=== PATIENT | female | born 1990 | race Caucasian/White ===

== ENCOUNTER 2020-08-29 16:20 | Emergency (ER) | payer BC, SELFPAY ==
[2020-08-29 16:21] VITALS: BP 123/71; PULSE 61; RESP 18; TEMP 36.6; O2SAT 96; BMI 30.1
--- NOTE | 2020-08-29 16:49 | CT_ITS ---
STUDY: CT ABDOMEN AND PELVIS WITH CONTRAST REASON FOR EXAM: Female, 29 years old. Right lower quadrant pain. RADIATION DOSAGE (If Supplied By Facility): CTDIvol = ( 18.04 ) mGy, DLP = ( 823.82 ) mGycm TECHNIQUE: Transaxial images were obtained from the dome of the diaphragm to the symphysis pubis without oral contrast. 100 ml of ISOVUE-370 contrast was administered. Sagittal and coronal images were reconstructed. Individualized dose optimization techniques were used for this CT. COMPARISON: None. FINDINGS: The visualized lung bases are clear. The visualized portions of the heart and pericardium are within normal limits. There are no calcified gallstones present. The liver is within normal limits. There are no suspicious hepatic lesions. The spleen is normal in size. The pancreas is within normal limits. The adrenal glands are within normal limits. There is a 2 mm nonobstructing stone in the collecting system of the right kidney. There is mild right hydroureteronephrosis and a delayed nephrogram in the right kidney. There are no right ureteral stones identified. There are no left renal or ureteral stones. There is no left hydronephrosis. There are no focal renal lesions. Normal visualized stomach. There is no bowel obstruction or inflammation. The appendix is not identified. At the time of the scan, the contrast has not yet reached the cecum. The aorta is normal in caliber. There is a 2 cm right adnexal cyst. There is no abdominal or pelvic free air, free fluid, fluid collection or lymphadenopathy. There are no destructive osseous lesions. CT/Abdomen/Pelvis WITH Contrast IMPRESSION: Mild right hydroureteronephrosis and a delayed nephrogram in the right kidney. No right ureteral stone identified. This may be due to a recently passed stone. 2 mm nonobstructing stone in the collecting system of the right kidney. No left-sided stones. No left-sided hydronephrosis. No bowel obstruction or inflammation. Appendix not identified. At the time of the scan, the enteric contrast has not yet reached the cecum. There is persistent concern for acute appendicitis, a repeat scan can be obtained after a delay to allow for the contrast to enter the cecum. 2 cm right adnexal cyst. Electronically Signed: Gordy Ware MD at 19:39 EDT Tel , Service support ,
--- NOTE | 2020-08-29 16:51 | ED.VISSUMM ---
- ER Visit Summary Date of Service: 08/29/20 Chief Complaint: Right lower quadrant pain History of Present Illness: The patient is a 29 F presenting with right lower quadrant pain. Patient states this started this afternoon. She has nausea with no vomiting. She had mild diarrhea. She denies fever. She has decreased appetite. She denies possibility of . Denies other complaints. Physical Examination: Vitals are stable. Patient is afebrile. Alert no acute distress. HEENT exam is unremarkable. Neck is supple. Lungs are clear and equal bilaterally. Heart is regular rate and rhythm. Abdomen is soft right lower quadrant tenderness with no rebound or guarding Back: mild right CVA tenderness Extremities are unremarkable. Skin is warm and dry. Remainder of exam is unremarkable. Emergency Department Course and Treatment: Patient was given morphine, Zofran, IV fluids. CBC shows white count 12.8. Chemistries unremarkable other than potassium 3.4. Urinalysis unremarkable. hCG negative. CT abdomen pelvis shows mild right hydroureteronephrosis and a delayed nephrogram in the right kidney. No right ureteral stone identified. This may be due to a recently passed stone. 2 mm nonobstructing stone in the collecting system of the right kidney. No left-sided stones. No left-sided hydronephrosis. No bowel obstruction or inflammation. Appendix not identified. At the time of the scan, the enteric contrast has not yet reached the cecum. There is persistent concern for acute appendicitis, a repeat scan can be obtained after a delay to allow for the contrast to enter the cecum. 2 cm right adnexal cyst. Delayed contrast CT images show rupture of the right renal calyx with extravasation of excreted contrast into the right anterior medial perirenal soft tissues. Right hydronephrosis. Persistently dense right renal nephrogram consistent with uropathy, likely obstructive uropathy. The right ureter does fill into the pelvis. The last centimeter or 2 of the right distal ureter did not opacify. Distal right ureteric stone is perceived. The left ureter fills all the way to the urinary bladder. Urinary bladder is becoming distended with excreted contrast. The dominant right ovarian follicle is again demonstrated. Patient was given additional dose of morphine IV. Recommend transfer to tertiary care center for further evaluation. Patient will be transferred to [facility]. Disposition: Transfer to [facility] Impression: Right flank pain, right renal calyx rupture This note was generated with [employer] dictation software. It may contain incorrect words, spelling, and punctuation that were not noted in review of the chart prior to signing ED Disposition - Plan for ED Patient: Referrals: Na Okeefe MD [Primary Care Provider] -
[2020-08-29 16:58] LABS: Bacteria 0 SEEN /hpf (None Seen); Mucous, Urine 0 SEEN /hpf (<or=2+); Red Blood Cells-Urine 0 SEEN /hpf (0-5); White Blood Cells 0 SEEN /hpf (0-5)
[2020-08-29 17:01] LABS: Color, Urine Yellow (Yellow); Glucose, Dipstick Normal (Normal); Ketone-Dipstick Negative (Negative); Leukocyte Esterase-Dipstick Negative /ul (Negative); Nitrite-Dipstick Negative (Negative); Occult Blood-Urine Negative /ul (Negative); Protein-Dipstick Negative (Negative); Urine Bilirubin Dipstick Negative (Negative); Urine Clarity Clear (Clear); Urine Urobilinogen Normal (Normal)
[2020-08-29] MEDS: Morphine 4 MG/ML Syringe IV ×3 (17:04→23:31)
[2020-08-29] MEDS: Ondansetron 4 MG/2 ML Vial IV (17:04)
[2020-08-29 17:05] LABS: Absolute Lymphocyte Count 1.77 X10^3/uL (0.83-4.51); Absolute Neutrophil Count 10.1 X10^3/uL (2.0-7.7); Basophil# 0.05 X10^3/uL; Basophil% 0.4 % (0-1); Eosinophils% 1.6 % (0-5); Hematocrit 40.4 % (37-47); Hemoglobin 13.9 g/dL (12.0-15.0); Lymphocyte # 1.77 X10^3/ul (4.0); Lymphocyte % 13.8 % (19-41); Mean Corp Hgb Conc 34.4 g/dL (32-36); Mean Corpuscular Hgb 29.8 pg (27.0-32.0); Mean Corpuscular Volume 86.5 fL (81-99); Mean Platelet Vol. 9.1 fl (6.2-12.0); Monocyte# 0.65 X10^3/uL; Monocyte% 5.1 % (0-10); NRBC Flagged by Analyzer 0 % (0-5); Neutrophil # 10.07 X10^3/uL (2.7-7.7); Neutrophil % 78.6 % (47-70); Platelet Count 331 K/mm3 (150-450); RBC Distribution Width CV 12.1 % (11.6-14.6); RBC Distribution Width SD 38.8 fl (35.1-43.9); Red Blood Count 4.67 M/mm3 (4.2-5.4); White Blood Count 12.8 K/mm3 (4.4-11.0)
[2020-08-29 17:10] LABS: Squamous Epithelial Cells - UA 0-5 SEEN /hpf (5-10)
[2020-08-29 17:12] LABS: Internal QC Validated? YES +Cl - CLEAR BKGD; Pregnancy, Serum, hCG Quali. NEGATIVE Negative
[2020-08-29 17:22] LABS: ALB/GLOB Ratio 1.2 RATIO (0.9-2.4); AST(SGOT) 12 U/L (15-37); Alanine Aminotransfer ALT/SGPT 18 U/L (13-56); Albumin, Serum 3.8 g/dL (3.2-5.0); Alkaline Phosphatase 63 U/L (45-117); Anion Gap 8 (5-15); BUN 10 mg/dL (7-18); BUN/Creat Ratio 10.6 RATIO (10-20); Calcium,Total 8.7 mg/dL (8.5-10.1); Chloride 105 mmol/L (98-107); Creatinine, Serum 0.95 mg/dL (0.55-1.02); EST Glomerular Filtration Rate 74 mL/min (>60); Est Glom Filt Rate - Afr Amer 90 mL/min (>60); Estimated Creatinine Clearance 72.93 ml/min; Globulin 3.2 g/dL (2.2-4.2); Glucose 98 mg/dL (74-106); Potassium 3.4 mmol/L (3.5-5.1); Sodium Level 138 mmol/L (136-145)
[2020-08-29 19:31] VITALS: BP 108/74; PULSE 72; RESP 14; O2SAT 98
--- NOTE | 2020-08-29 21:00 | CT_ITS ---
HISTORY: Right lower quadrant pain. Delayed imaging. Comparison study is from just less than 2 hours earlier. Technique: After a delay contiguous helical images were obtained from the bottom of the kidneys through the pubic symphysis. 2-D reformats. Findings: There is extravasation of excreted contrast from the right renal pelvis into the surrounding soft tissues. The right nephrogram is persistently dense. Right hydronephrosis. The right ureter fills and till distally. The left ureter fills to the urinary bladder. Contrast is present within the urinary bladder. The terminal ileum is opacified with contrast. Some of the cecum is opacified with contrast but not all of the cecum. I believe there is a structure that represents a normal appendix, coronal series 602 image 44, and I do not believe the appendix is inflamed. Uterus and ovaries remain. CT/Limited or Localized F/U CT IMPRESSION: Rupture of the right renal calyx with extravasation of excreted contrast into the right anterior medial perirenal soft tissues. Right hydronephrosis. Persistently dense right renal nephrogram consistent with uropathy, likely obstructive uropathy. The right ureter does fill into the pelvis. The last centimeter or 2 of the right distal ureter did not opacify. Distal right ureteric stone is perceived. The left ureter fills all the way to the urinary bladder. Urinary bladder is becoming distended with excreted contrast. The dominant right ovarian follicle is again demonstrated. Individualized dose optimization techniques were used for this CT. at 2134 Reported and signed by: Rodolfo Martino MD Electronically Signed: Rodolfo Martino MD at 21:33 EDT Tel , Service support ,
[2020-08-29 21:44] VITALS: BP 139/84; PULSE 79; RESP 16; O2SAT 98
[2020-08-29 23:38] VITALS: BP 139/84; PULSE 79; RESP 16; TEMP 36.6; O2SAT 98
== END 2020-08-29 23:42 | disposition short-term general hospital (02) ==
LOC: ED 17:17
PROVIDERS: Emergency Provider Emergency Medicine; PCP Internal Medicine
DX: N13.2 Hydronephrosis with renal and ureteral calculous obstruction (principal)
CPT/HCPCS: 74177; 76380; 80053; 81001; 84703; 85025; 96374; 96375; 96376; 99285; J7040; Q9967; A4216; J2405